=== PATIENT | female | born 1960 | race Caucasian/White ===

== ENCOUNTER 2021-02-05 14:56 | Inpatient (IN) | payer OTHER, BC ==
[~2021-02-05] VITALS: Ht 170.2 cm; Wt 127.0 kg
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
[2021-02-05] MEDS ORDERED: oxyCODONE IR 5 MG TABLET PO ONE (20:00)
[2021-02-05] MEDS ORDERED: ACETAMINOPHEN 500 MG TABLET PO ONE (20:00)
[2021-02-05] MEDS ORDERED: MORPHINE SULFATE 4 MG/ML INJ. IVP ONE (20:30)
--- NOTE | 2021-02-05 20:42 | RAD ---
Study: XR KNEE _3 VIEWS_LT Indication: Left knee pain. Comparison: None. Findings: Comminuted, displaced and depressed lateral tibial plateau fracture. Depression is estimated at up to 1.6 cm. The periphery of the lateral tibial plateau is displaced outward by approximately 0.8 cm. Th ere is the suggestion of fracture involvement of the more posterior aspect of the tibial eminence on the lateral view. Only apparent on the AP view is cortical irregularity at the medial aspect of the p roximal tibia and fracture propagation to this location is possible. Age-indeterminate mild deformity of the fibular head. No definitive fracture of the distal femur. Intact and normally located patella . Joint effusion. Osteopenia. Tricompartmental osteoarthrosis with medial compartment joint space kianna rowing. Impression: Comminuted, depressed and displaced lateral tibial plateau fracture, as above. It is possible that th ere is fracture extension horizontally along the proximal tibia through the medial cortex (see costa im age) but difficult to confirm due to osteopenia. There is also an age-indeterminate mild deformity of the fibular head. Electronically signed by: RONALD HALL MD (02/05/2021 8:40 PM) [facility]
[2021-02-05] MEDS ORDERED: ONDANSETRON PF 4 MG/2 ML VIAL. IVP PRN (20:45)
[2021-02-05] MEDS ORDERED: HYDROcodone/APAP 5/325MG 1 TAB TABLET PO PRN (22:15)
[2021-02-05] MEDS ORDERED: ACETAMINOPHEN 325 MG TABLET. PO PRN (22:15)
[2021-02-05] MEDS: HYDROcodone/APAP 5/325MG 1 TAB TABLET PO PRN (22:17)
[2021-02-06] VITALS (7 sets, daily range): BP systolic 120–190; BP diastolic 59–89
[2021-02-06] MEDS: MORPHINE SULFATE 4 MG/ML INJ. IVP PRN ×4 (01:03→15:14)
[2021-02-06] MEDS ORDERED: LANS30CA PO (02:08)
[2021-02-06] MEDS ORDERED: [UNRECOGNIZED DRUG - OTHER] PO (02:09)
[2021-02-06] MEDS ORDERED: VITA25006 PO (02:10)
[2021-02-06] MEDS: HYDROcodone/APAP 5/325MG 1 TAB TABLET PO PRN ×4 (02:43→21:10)
--- NOTE | 2021-02-06 05:25 | NUR ---
The patient, LADONNA DEXTER, 60 y/o, F admitted by MAEGAN HERNANDEZ MD, was given written information regarding hospital policies, unit procedures and contact persons. Patient oriented to room, call light, bed and POC. Call light in reach, Patient instructed on use and verbalized understanding. Valuables were checked and Patient's taking valuables/purse with him when he leaves.
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
[2021-02-06 07:19] LABS: BASO % 0 % (0-3); EOS # 0.1 x10^3/uL (0.0-0.7); EOS % 1 % (0-3); HEMOGLOBIN 9.4 g/dL (12.0-15.5); LYMPH # 1.4 x10^3/uL (1.0-4.8); LYMPH % 13 % (24-48); MEAN CORPUSCULAR HEMOGLOBIN 22 pg (25-35); MEAN CORPUSCULAR HGB CONC 31 g/dL (31-37); MEAN CORPUSCULAR VOLUME 70 fL (79-100); MONO % 9 % (0-9); NEUT # 8.6 x10^3/uL (1.8-7.7); NEUT % 77 % (31-73); PLATELET COUNT 327 x10^3/uL (140-400); RED CELL DISTRIBUTION WIDTH 18.9 % (11.5-14.5); WHITE BLOOD COUNT 11.1 x10^3/uL (4.0-11.0)
[2021-02-06 07:42] LABS: ALBUMIN 3.6 g/dL (3.4-5.0); ALBUMIN/GLOBULIN RATIO 0.9 (1.0-1.7); CALCIUM 8.5 mg/dL (8.5-10.1); CREATININE 0.9 mg/dL (0.6-1.0); GFR 64.3; POTASSIUM 4.5 mmol/L (3.5-5.1); TOTAL BILIRUBIN 0.5 mg/dL (0.2-1.0); TOTAL PROTEIN 7.7 g/dL (6.4-8.2)
[2021-02-06 08:43] LABS: PLT ESTIMATE ADEQUATE (ADEQUATE)
[2021-02-06 08:44] LABS: ANISOCYTOSIS MOD; MICROCYTOSIS SLIGHT
--- NOTE | 2021-02-06 10:04 | NUR ---
SW following. Discussed with RN, pt from home, 2L (does not use oxygen at home), NPO, Rapid COVID-19 negative. Ortho following - pt having surgery today. SW will continue to follow.
[2021-02-06] MEDS ORDERED: DEXTROSE 50% 25 GM / 50ML DISP.SYRIN. IV PRN (10:45)
--- NOTE | 2021-02-06 10:54 | EKG ---
[facility] [address] [place] [address] Test Date: 2021-02-06 Test Time: 10:51:46 Pat Name: LADONNA DEXTER Department: Room: 410 Gender: F [employer] Worker: NIKHIL : 1960 Requested By: MAEGAN HERNANDEZ Order Number: [id number] Reading MD: Damon Barrientos MD Measurements Intervals [place] Rate: 93 P: 24 DE: 170 QRS: 1 QRSD: 84 T: 56 QT: 338 QTc: 423 Interpretive Statements SINUS RHYTHM VENTRICULAR PREMATURE COMPLEX(ES) Electronically Signed On 02-08-2021 14:00:25 [employer]UE ASS[employer]IATE by Damon Barrientos MD
[2021-02-06] MEDS: INSULIN LISPRO 300 UNITS/3 ML VIAL. SQ SCH ×2 (11:21→17:00)
[2021-02-06] MEDS ORDERED: PROCHLORPERAZINE 10 MG/2 ML VIAL. IVP PRN (12:15)
[2021-02-06] MEDS ORDERED: HYDROmorphone 2 MG/ML VIAL IVP PRN (12:15)
[2021-02-06] MEDS ORDERED: fentaNYL PF VIAL 100 MCG/2 ML VIAL IVP PRN ×2 (12:15→18:15)
[2021-02-06] MEDS ORDERED: IV RINGERS,LACTATED 1000ML 1,000 ML IV SCH (12:15)
[2021-02-06] MEDS ORDERED: LIDOCAINE 2% PF 5 ML VIAL. ONE (14:20)
[2021-02-06] MEDS ORDERED: SUCCINYLCHOLINE 200 MG/10 ML VIAL. ONE (14:20)
[2021-02-06] MEDS ORDERED: PROPOFOL 10 MG/ML (20ML) VIAL. IV ONE (14:20)
[2021-02-06] MEDS ORDERED: ROCURONIUM 50 MG/5 ML VIAL. ONE (14:22)
[2021-02-06] MEDS ORDERED: GLYCOPYRROLATE 1 MG/5 ML VIAL. ONE (15:14)
[2021-02-06] MEDS ORDERED: fentaNYL PF VIAL 100 MCG/2 ML VIAL ONE (15:14)
[2021-02-06] MEDS ORDERED: ePHEDrine PF IN SALINE 50 MG/10 ML SYRINGE. IV ONE (15:15)
[2021-02-06] MEDS ORDERED: NEOSTIGMINE METHYLSULFATE 5 MG/5 ML SYRINGE. ONE (15:15)
[2021-02-06] MEDS ORDERED: PHENYLEPHRINE in 0.9% NACL PF 1 MG/10 ML SYRINGE. IV ONE (15:15)
--- NOTE | 2021-02-06 16:05 | NUR ---
Pt to surgery by bed.
[2021-02-06] MEDS ORDERED: MIDAZOLAM HCL/PF 2 MG/2 ML VIAL. ONE (16:24)
[2021-02-06] MEDS: INSULIN LISPRO 100 UNIT/ML 3ML VIAL for OP,RR ONLY. SQ PRN ×2 (16:25→18:25)
[2021-02-06] MEDS ORDERED: FAMOTIDINE 20 MG/2 ML VIAL ONE (17:00)
[2021-02-06] MEDS ORDERED: METOCLOPRAMIDE HCL 10 MG/2 ML VIAL. ONE (17:01)
[2021-02-06] MEDS ORDERED: SEVOFLURANE 61 TO 120 MINUTES. IH ONE (17:47)
--- NOTE | 2021-02-06 18:00 | PDOC2 ---
CONSULT Date of Consult Date of Consult DATE: 02/06/21 TIME: 17:56 Reason for Consult Reason for Consult: Displaced lateral tibial plateau fracture. Identification/Chief Complaint Chief Complaint Displaced lateral tibial plateau fracture. Source Source: Patient History of Present Illness Reason for Visit: Sigrid is a 60-year-old female, admitted with left knee pain after fall. She was running after a shopping cart when she tripped and fell onto the pavement. She had immediate pain and inability to bear weight. She was seen in the emergency department and radiographs revealed a displaced split/depressed lateral tibial plateau fracture. Mechanical axis was in valgus. She admits to acute left leg pain. Denies any numbness or tingling. Past Medical History Cardiovascular: No pertinent hx Past Surgical History Past Surgical History: Hysterectomy (1994) Social History No ALCOHOL: occassional Drugs: None Current Problem List Problem List Problems Medical Problems: (1) Tibial plateau fracture, left Status: Acute Current Medications Current Medications Current Medications Acetaminophen (Tylenol) 1,000 mg 1X ONCE PO Last administered on 02/05/21at 20:01; Start 02/05/21 at 20:00; Stop 02/05/21 at 20:01; Status DC Oxycodone HCl (Roxicodone) 5 mg 1X ONCE PO Last administered on 02/05/21at 20:02; Start 02/05/21 at 20:00; Stop 02/05/21 at 20:01; Status DC Morphine Sulfate (Morphine Sulfate) 4 mg 1X ONCE IVP Last administered on 02/05/21at 20:58; Start 02/05/21 at 20:30; Stop 02/05/21 at 20:31; Status DC Ondansetron HCl (Zofran) 4 mg PRN Q8HRS PRN IVP NAUSEA/VOMITING Last administered on 02/05/21at 20:57; Start 02/05/21 at 20:45; Stop 02/06/21 at 20:44 Morphine Sulfate (Morphine Sulfate) 4 mg PRN Q4HRS PRN IVP PAIN Last administered on 02/06/21at 15:14; Start 02/05/21 at 20:45; Stop 02/06/21 at 20:44 Acetaminophen (Tylenol) 650 mg PRN Q6HRS PRN PO MILD PAIN / TEMP > 100.3'F; Start 02/05/21 at 22:15 Acetaminophen/ Hydrocodone Bitart (Lortab 5/325) 1 tab PRN Q4HRS PRN PO PAIN MODERATE; Start 02/05/21 at 22:15 Acetaminophen/ Hydrocodone Bitart (Lortab 5/325) 2 tab PRN Q4HRS PRN PO SEVERE PAIN Last administered on 02/06/21at 14:27; Start 02/05/21 at 22:15 Cefazolin Sodium/ Dextrose 50 ml @ 100 mls/hr 1X PREOP PRN IV PRIOR TO PROCEDURE; Start 02/06/21 at 06:40; Stop 02/07/21 at 06:39 Insulin Human Lispro (HumaLOG) 0-5 UNITS TIDWMEALS SQ ; Start 02/06/21 at 12:00 Dextrose (Dextrose 50%-Water Syringe) 12.5 gm PRN Q15MIN PRN IV SEE COMMENTS; Start 02/06/21 at 10:45 Fentanyl Citrate (Fentanyl 2ml Vial) 25 mcg PRN Q5MIN PRN IVP MILD PAIN 1-3; Start 02/06/21 at 12:15; Stop 02/07/21 at 12:14 Fentanyl Citrate (Fentanyl 2ml Vial) 50 mcg PRN Q5MIN PRN IVP MODERATE PAIN 4- 6; Start 02/06/21 at 12:15; Stop 02/07/21 at 12:14 Morphine Sulfate (Morphine Sulfate) 1 mg PRN Q10MIN PRN IVP SEVERE PAIN 7-10; Start 02/06/21 at 12:15; Stop 02/07/21 at 12:14 Ringer's Solution 1,000 ml @ 30 mls/hr Q24H IV Last administered on 02/06/21at 16:24; Start 02/06/21 at 12:15; Stop 02/07/21 at 00:14 Hydromorphone HCl (Dilaudid) 0.5 mg PRN Q10MIN PRN IVP SEVERE PAIN 7-10, 2nd CHOICE; Start 02/06/21 at 12:15; Stop 02/07/21 at 12:14 Prochlorperazine Edisylate (Compazine) 5 mg PACU PRN PRN IVP NAUSEA, MRX1; Start 02/06/21 at 12:15; Stop 02/07/21 at 12:14 Propofol (Diprivan) 200 mg STK-MED ONCE IV ; Start 02/06/21 at 14:20; Stop 02/06/21 at 14:20; Status DC Lidocaine HCl (Lidocaine Pf 2% Vial) 5 ml STK-MED ONCE .ROUTE ; Start 02/06/21 at 14:20; Stop 02/06/21 at 14:20; Status DC Succinylcholine Chloride (Anectine) 200 mg STK-MED ONCE .ROUTE ; Start 02/06/21 at 14:20; Stop 02/06/21 at 14:20; Status DC Rocuronium [place] (Zemuron) 50 mg STK-MED ONCE .ROUTE ; Start 02/06/21 at 14: 22; Stop 02/06/21 at 14:23; Status DC Fentanyl Citrate (Fentanyl 2ml Vial) 100 mcg STK-MED ONCE .ROUTE ; Start 02/06/21 at 15:14; Stop 02/06/21 at 15:14; Status DC Glycopyrrolate (Robinul) 1 mg STK-MED ONCE .ROUTE ; Start 02/06/21 at 15:14; Stop 02/06/21 at 15:15; Status DC Ephedrine Sulfate (ePHEDrine PF IN SALINE SYRINGE) 50 mg STK-MED ONCE IV ; Start 02/06/21 at 15:15; Stop 02/06/21 at 15:15; Status DC Phenylephrine HCl (PHENYLEPHRINE in 0.9% NACL PF) 1 mg STK-MED ONCE IV ; Start 02/06/21 at 15:15; Stop 02/06/21 at 15:15; Status DC Neostigmine [place] (Neostigmine Methylsulfate) 5 mg STK-MED ONCE .ROUTE ; Start 02/06/21 at 15:15; Stop 02/06/21 at 15:15; Status DC Insulin Human Lispro (HumaLOG VIAL for OP,RR ONLY) 0-10 units PRN Q1HR PRN SQ PER PROTOCOL Last administered on 02/06/21at 16:25; Start 02/06/21 at 16:15; Stop 02/07/21 at 16:14 Midazolam HCl (Versed) 2 mg STK-MED ONCE .ROUTE ; Start 02/06/21 at 16:24; Stop 02/06/21 at 16:24; Status DC Famotidine (Pepcid Vial) 20 mg STK-MED ONCE .ROUTE ; Start 02/06/21 at 17:00; Stop 02/06/21 at 17:01; Status DC Metoclopramide HCl (Reglan Vial) 10 mg STK-MED ONCE .ROUTE ; Start 02/06/21 at 17:01; Stop 02/06/21 at 17:01; Status DC Sevoflurane (Ultane) 60 ml STK-MED ONCE IH ; Start 02/06/21 at 17:47; Stop 02/06/21 at 17:48; Status DC Active Scripts Active Reported Noxifol-D3 2,500 Unit-1 mg Tab (Vitamin D3/Folic Acid) 2,500 Unit Tablet 1 Tab PO DAILY 30 Days [truvy] PO Lansoprazole 30 Mg Capsule. 1 Cap PO DAILY Allergies Allergies: Coded Allergies: No Known Drug Allergies (Unverified , 02/05/21) ROS Musculoskeletal: Yes Joint Pain, Yes Joint Stiffness, Yes Joint Swelling, Yes Muscle Pain Physical Exam General: Alert, Oriented X3 MUSCULOSKELETAL: Abnormal exam of left (Examination of the left lower extremity reveals small skin abrasion over the anterior knee. Significant ecchymosis and swelling of the lower leg. Compartment is firm. Distal neurovascular examination is intact. Passive range of motion of the ankle and toes did not cause significant pain.) Vitals VITALS Vital Signs Date Time Temp Pulse Resp B/P (MAP) Pulse Ox O2 Delivery O2 Flow Rate FiO2 02/06/21 16:10 97.5 110 16 175/81 97 Nasal Cannula 2.0 97.5 Labs Labs Laboratory Tests Test 02/05/21 23:22 02/06/21 06:05 02/06/21 06:50 02/06/21 11:12 SARS-CoV-2 RNA (LUIS A) Negative (Negative) SARS-CoV-2 Antigen (Rapid) Negative (NEGATIVE) White Blood Count 11.1 x10^3/uL (4.0-11.0) Red Blood Count 4.30 x10^6/uL (3.50-5.40) Hemoglobin 9.4 g/dL (12.0-15.5) Hematocrit 30.0 % (36.0-47.0) Mean Corpuscular Volume 70 fL (79-100) Mean Corpuscular Hemoglobin 22 pg (25-35) Mean Corpuscular Hemoglobin Concent 31 g/dL (31-37) Red Cell Distribution Width 18.9 % (11.5-14.5) Platelet Count 327 x10^3/uL (140-400) Neutrophils (%) (Auto) 77 % (31-73) Lymphocytes (%) (Auto) 13 % (24-48) Monocytes (%) (Auto) 9 % (0-9) Eosinophils (%) (Auto) 1 % (0-3) Basophils (%) (Auto) 0 % (0-3) Neutrophils # (Auto) 8.6 x10^3/uL (1.8-7.7) Lymphocytes # (Auto) 1.4 x10^3/uL (1.0-4.8) Monocytes # (Auto) 1.0 x10^3/uL (0.0-1.1) Eosinophils # (Auto) 0.1 x10^3/uL (0.0-0.7) Basophils # (Auto) 0.0 x10^3/uL (0.0-0.2) Platelet Estimate Adequate (ADEQUATE) Anisocytosis Mod Microcytosis Slight Sodium Level 136 mmol/L (136-145) Potassium Level 4.5 mmol/L (3.5-5.1) Chloride Level 102 mmol/L (98-107) Carbon Dioxide Level 29 mmol/L (21-32) Anion Gap 5 (6-14) Blood Urea Nitrogen 17 mg/dL (7-20) Creatinine 0.9 mg/dL (0.6-1.0) Estimated GFR (Cockcroft-Gault) 64.3 BUN/Creatinine Ratio 19 (6-20) Glucose Level 157 mg/dL (70-99) Calcium Level 8.5 mg/dL (8.5-10.1) Total Bilirubin 0.5 mg/dL (0.2-1.0) Aspartate Amino Transf (AST/SGOT) 23 U/L (15-37) Alanine Aminotransferase (ALT/SGPT) 26 U/L (14-59) Alkaline Phosphatase 101 U/L (46-116) Total Protein 7.7 g/dL (6.4-8.2) Albumin 3.6 g/dL (3.4-5.0) Albumin/Globulin Ratio 0.9 (1.0-1.7) Iron Level 34 ug/dL (50-170) Total Iron Binding Capacity 417 ug/dL (250-450) Iron Saturation 8 % (15-34) Vitamin B12 Level 565 pg/mL (247-911) 25-Hydroxy Vitamin D Total 27.9 ng/mL (30-100) Glucose (Fingerstick) 136 mg/dL (70-99) Test 02/06/21 16:14 Glucose (Fingerstick) 158 mg/dL (70-99) Laboratory Tests Test 02/05/21 23:22 02/06/21 06:05 02/06/21 06:50 02/06/21 11:12 SARS-CoV-2 RNA (LUIS A) Negative (Negative) SARS-CoV-2 Antigen (Rapid) Negative (NEGATIVE) White Blood Count 11.1 x10^3/uL (4.0-11.0) Red Blood Count 4.30 x10^6/uL (3.50-5.40) Hemoglobin 9.4 g/dL (12.0-15.5) Hematocrit 30.0 % (36.0-47.0) Mean Corpuscular Volume 70 fL (79-100) Mean Corpuscular Hemoglobin 22 pg (25-35) Mean Corpuscular Hemoglobin Concent 31 g/dL (31-37) Red Cell Distribution Width 18.9 % (11.5-14.5) Platelet Count 327 x10^3/uL (140-400) Neutrophils (%) (Auto) 77 % (31-73) Lymphocytes (%) (Auto) 13 % (24-48) Monocytes (%) (Auto) 9 % (0-9) Eosinophils (%) (Auto) 1 % (0-3) Basophils (%) (Auto) 0 % (0-3) Neutrophils # (Auto) 8.6 x10^3/uL (1.8-7.7) Lymphocytes # (Auto) 1.4 x10^3/uL (1.0-4.8) Monocytes # (Auto) 1.0 x10^3/uL (0.0-1.1) Eosinophils # (Auto) 0.1 x10^3/uL (0.0-0.7) Basophils # (Auto) 0.0 x10^3/uL (0.0-0.2) Platelet Estimate Adequate (ADEQUATE) Anisocytosis Mod Microcytosis Slight Sodium Level 136 mmol/L (136-145) Potassium Level 4.5 mmol/L (3.5-5.1) Chloride Level 102 mmol/L (98-107) Carbon Dioxide Level 29 mmol/L (21-32) Anion Gap 5 (6-14) Blood Urea Nitrogen 17 mg/dL (7-20) Creatinine 0.9 mg/dL (0.6-1.0) Estimated GFR (Cockcroft-Gault) 64.3 BUN/Creatinine Ratio 19 (6-20) Glucose Level 157 mg/dL (70-99) Calcium Level 8.5 mg/dL (8.5-10.1) Total Bilirubin 0.5 mg/dL (0.2-1.0) Aspartate Amino Transf (AST/SGOT) 23 U/L (15-37) Alanine Aminotransferase (ALT/SGPT) 26 U/L (14-59) Alkaline Phosphatase 101 U/L (46-116) Total Protein 7.7 g/dL (6.4-8.2) Albumin 3.6 g/dL (3.4-5.0) Albumin/Globulin Ratio 0.9 (1.0-1.7) Iron Level 34 ug/dL (50-170) Total Iron Binding Capacity 417 ug/dL (250-450) Iron Saturation 8 % (15-34) Vitamin B12 Level 565 pg/mL (247-911) 25-Hydroxy Vitamin D Total 27.9 ng/mL (30-100) Glucose (Fingerstick) 136 mg/dL (70-99) Test 02/06/21 16:14 Glucose (Fingerstick) 158 mg/dL (70-99) Images Images Radiographs revealed a split depressed lateral tibial plateau fracture and valgus malalignment. Assessment/Plan Assessment/Plan 60-year-old female with left split/depressed lateral tibial plateau fracture after ground-level fall. Unacceptable alignment. -Radiographs and diagnosis were discussed with patient and her Dread. -We discussed both conservative and surgical treatment options. I would recommend she proceed with surgery given her fracture pattern and valgus malalignment of her limb. We discussed the risk, benefits, and alternatives to surgery. These risks include but not limited to pain, scar, infection, bleeding, damage to neurovascular structures, arthrofibrosis, thromboembolism, compartment syndrome, malunion, nonunion, and ongoing symptoms. She demonstrated understanding and wished to proceed. -Surgical consent was obtained. Patient scheduled for surgery today. -NPO. Antibiotics on-call the OR. -We will plan for left leg lateral tibial plateau fracture open reduction internal fixation with bone graft. SIMEON COSME DO Feb 06, 2021 18:00
--- NOTE | 2021-02-06 18:05 | PDOC4 ---
Operative Note Operative Note Date of surgery: 02/06/2021 Preoperative diagnosis: Left knee lateral tibial plateau split/depressed fracture. Postoperative diagnosis: Same. Operative procedure: Left lateral tibial plateau fracture open reduction internal fixation with bone allograft. Surgeon: Rhett Cosme DO/KASIA Assistants: None. Anesthesia: General Antibiotics: Ancef Orthopedic implants: -Synthes variable angle lateral tibial plateau plate. Operative indications: Sigrid is a 60-year-old female admitted to the hospital after ground-level fall. Radiographs revealed an unstable lateral tibial plateau fracture with valgus malalignment. We discussed the indications, risk, benefits, and alternatives to surgery. She demonstrated understanding and wished proceed with recommended surgery. Operative technique: The patient was met in the preoperative holding area and again the risk, benefits, and alternatives to surgery were reviewed with the patient. She again demonstrated understanding and wished to proceed with surgery. The operative extremity was then initialed after verifying correct young gical site with patient. Patient was then taken back to the operative suite. She was administered a general anesthetic by the department of anesthesiology. During induction, patient vomited brown fluid with unknown aspiration status. Anesthesia department suction the fluid and was able to intubate the patient without significant difficulties. Patient was stable throughout the case. She was given 2 g of Ancef preoperatively. A timeout protocol was performed to verify correct surgical site and procedure. All teams were in agreement. The left lower extremity was then sterilely prepped and draped in the usual fashion. Surgery began by marking our planned surgical incision overlying the lateral leg. The curvilinear incision was made with a 10 blade scalpel. Bovie electrocautery was used to control hemostasis. The anterior compartment was then entered and elevated off the proximal lateral tibia. The IT band was split proximally. The IT band was elevated off the joint capsule. The fracture site was then identified. There was a large lateral fracture fragment which was open booked. 2 large articular fragments were noted. The fracture site was thoroughly irrigated and provisional fracture hematoma. The large articular fragments were tamped back to the joint surface utilizing a Watt elevator. Cancellous bone chips were then packed into the void to following reduction of the articular fragments. The lateral fracture piece was then closed. A lateral tibial plateau plate was selected and placed on the lateral aspect of the proximal tibia. Its position was checked under C-arm fluoroscopy. Fluoroscopic images revealed adequate fracture reduction and plate placement. A large periarticular clamp was then placed with a accessory percutaneous medial incis ion. Next, the plate was fixated to the tibial shaft utilizing a 3.5 mm cortical screw. Multiple variable angle locking screws were placed rafting the subchondral bony surface for support. This secured fracture fixation. The plate was then fixated to the distal aspect utilizing additional cortical screws. Final fluoroscopic images in the AP and lateral planes were taken and saved for later review. The wounds were thoroughly irrigated with normal saline. The IT band and deep into compartment tissues were closed utilizing #1 Vicryl in [id number] fashion. Skin was then closed with 2-0 Vicryl and jordi. Sterile dressings were then applied and the patient was awakened from general anesthesia. He was then transferred to the postoperative gurney in stable condition. Estimated blood loss: 100 mL. Complications: None. Specimens sent to pathology: None. Disposition: PACU and post surgical floor. Condition: Stable. RHETT COSME DO Feb 06, 2021 18:05
[2021-02-06] MEDS: fentaNYL PF VIAL 100 MCG/2 ML VIAL IVP PRN ×2 (18:10→18:21)
[2021-02-06] MEDS: MORPHINE SULFATE 2 MG/ML INJ. IVP PRN ×3 (18:10→18:58)
[2021-02-06] MEDS ORDERED: MORPHINE SULFATE 2 MG/ML INJ. IVP PRN (18:15)
[2021-02-06] MEDS ORDERED: 0.9 % SODIUM CHLORIDE 10 ML DISP.SYRIN. IV PRN (18:15)
[2021-02-06] MEDS ORDERED: diphenhydrAMINE 50 MG/ML VIAL IVP PRN (18:15)
[2021-02-06 18:34] LABS: BASE EXCESS ABG -4 mmol/L (-3-3); HCO3 ABG 24 mmol/L (21-28); PCO2 ABG 58 mmHg (35-46); PO2 ABG 109 mmHg (75-108); SAT O2 ABG 97 % (92-99)
[2021-02-06] MEDS ORDERED: IPRATRPIUM/ALBUTEROL 0.5/2.5MG 3 ML NEBU. NEB PRN (19:45)
[2021-02-06] MEDS ORDERED: IPRATRPIUM/ALBUTEROL 0.5/2.5MG 3 ML NEBU. NEB SCH (20:00)
--- NOTE | 2021-02-06 20:16 | PDOC ---
Provider Note Date of Service: DATE: 02/06/21 TIME: 20:13 Provider Note Anesthesia note 02/06/2021 Patient vomited on induction of anesthesia. Airway was quickly secured with rapid sequence induction and intubation with 7.0 ETT and Glidescope. VS remained relatively normal during case. ETT was suctioned without vomit noted. At end of case, patient did cough up dark thick fluid via ETT. This was suctioned via ETT. VS stabilized and patient was extubated. Patient went to PACU where CXR and ABGs were done. CXR appeared normal. ABGs showed hypercarbia and acidosis. O2 was ti trated to maximal results by staff. Obvious sleep apnea and hypoventilation noted. She was transferred to monitored bed with orders for RT to titrate O2 to keep O2 sat > or equal to 92%. Other orders include scheduled Duonebs treatments, incentive spirometry, and pulmonary consult. Case discussed in detail with . Questions were answered to his satisfaction. Cory Marion MD Justifications for Admission Other Justification CORY MARION MD Feb 06, 2021 20:16
--- NOTE | 2021-02-06 20:38 | RAD ---
Exam: Left knee 2 views INDICATION: Post surgery TECHNIQUE: Frontal and lateral views left knee Comparisons: None FINDINGS: Fixation along the lateral aspect of the proximal tibia with numerous fixation screws. Surgical clips seen overlying the lateral aspect knee. Small amount of soft tissue air. Bone mineralization is norm al IMPRESSION: Postoperative changes described above. Electronically signed by: Iwona Joshi MD (02/06/2021 8:36 PM) LYLY
--- NOTE | 2021-02-06 20:39 | RAD ---
Exam: Chest one view INDICATION: Post surgery TECHNIQUE: Frontal view of the Comparisons: None FINDINGS: Heart is mildly enlarged. Pulmonary vessels are within normal limits. The lung and pleural spaces are clear. IMPRESSION: No acute pulmonary process. Electronically signed by: Iwona Joshi MD (02/06/2021 8:36 PM) LYLY
[2021-02-06] MEDS: ceFAZolin SODIUM 3 GM in IV DEXTROSE 5% 100ML 100 ML IV SCH (21:04)
[2021-02-06] MEDS: ONDANSETRON PF 4 MG/2 ML VIAL. IVP SCH (23:50)
[2021-02-07] MEDS: HYDROcodone/APAP 5/325MG 1 TAB TABLET PO PRN ×2 (01:20→10:25)
[2021-02-07] MEDS: ceFAZolin SODIUM 3 GM in IV DEXTROSE 5% 100ML 100 ML IV SCH ×2 (01:21→08:47)
[2021-02-07 02:42] VITALS: BP 183/72
[2021-02-07 04:20] LABS: PROTHROMBIN TIME PATIENT 13.7 SEC (11.7-14.0)
[2021-02-07] MEDS: ONDANSETRON PF 4 MG/2 ML VIAL. IVP SCH ×3 (05:52→17:12)
[2021-02-07 07:00] VITALS: BP 174/76
[2021-02-07] MEDS: IPRATRPIUM/ALBUTEROL 0.5/2.5MG 3 ML NEBU. NEB SCH ×4 (07:40→20:41)
[2021-02-07] MEDS: INSULIN LISPRO 300 UNITS/3 ML VIAL. SQ SCH ×3 (08:00→16:46)
--- NOTE | 2021-02-07 08:27 | PDOC ---
[employer] PROGRESS NOTE Date of Service DOS: DATE: 02/07/21 TIME: 08:24 Chief Complaint Chief Complaint Left tibial plateau fracture - POD #1, Left lateral tibial plateau fracture open reduction internal fixation with bone allograft. Fall - no gait instability Morbid obesity - BMI 43 Anemia - w Osteopenia - o Leukocytosis - Hyperglycemia History of Present Illness History of Present Illness vomited during intubation procedure, breathing OK today Vitals/I&O Vitals/I&O: Vital Signs Date Time Temp Pulse Resp B/P (MAP) Pulse Ox O2 Delivery O2 Flow Rate FiO2 02/07/21 07:40 98 Nasal Cannula 4.0 02/07/21 02:42 97.5 105 19 183/72 (109) 97.5 I & O 02/06/21 02/06/21 02/07/21 15:00 23:00 07:00 Intake Total 0 ml 600 ml 50 ml Output Total 20 ml Balance 0 ml 580 ml 50 ml Physical Exam General: Alert, Oriented X3 Abdomen: Normal bowel sounds, Soft, No tenderness, No hepatosplenomegaly, No masses Extremities: Other (Left knee tender, swollen inferiorly) Skin: No rashes, No breakdown, No significant lesion Labs Labs: Laboratory Tests Test 02/06/21 11:12 02/06/21 16:14 02/06/21 18:15 02/06/21 18:21 Glucose (Fingerstick) 136 mg/dL (70-99) 158 mg/dL (70-99) 155 mg/dL (70-99) O2 Saturation 97 % (92-99) Arterial Blood pH 7.24 (7.35-7.45) Arterial Blood pCO2 at Patient Temp 58 mmHg (35-46) Arterial Blood pO2 at Patient Temp 109 mmHg (75-108) Arterial Blood HCO3 24 mmol/L (21-28) Arterial Blood Base Excess -4 mmol/L (-3-3) FiO2 6 lpm simple mask Test 02/07/21 03:45 Prothrombin Time 13.7 SEC (11.7-14.0) Prothromb Time International Ratio 1.1 (0.8-1.1) Assessment and Plan Assessmemt and Plan Left knee lateral tibial plateau split/depressed fracture. Problems Medical Problems: (1) Tibial plateau fracture, left Status: Acute Comment Review of Relevant I have reviewed the following items raghav (where applicable) has been applied. Medications: Current Medications Medications (Trade) Dose Ordered Sig/Anna Route PRN Reason Start Time Stop Time Status Last Admin Dose Admin Fentanyl Citrate (Fentanyl 2ml Vial) 50 mcg PRN Q5MIN PRN IVP MODERATE PAIN 4-6 02/06/21 12:15 02/07/21 12:14 02/06/21 18:21 Morphine Sulfate (Morphine Sulfate) 1 mg PRN Q10MIN PRN IVP SEVERE PAIN 7-10 02/06/21 12:15 02/07/21 12:14 02/06/21 18:58 Ringer's Solution 1,000 ml @ 30 mls/hr Q24H IV 02/06/21 12:15 02/07/21 00:14 DC 02/06/21 16:24 Insulin Human Lispro (HumaLOG VIAL for OP,RR ONLY) 0-10 units PRN Q1HR PRN SQ PER PROTOCOL 02/06/21 16:15 02/07/21 16:14 02/06/21 18:25 Ondansetron HCl (Zofran) 4 mg Q6HRS IVP 02/07/21 00:00 02/07/21 18:01 02/07/21 05:52 Cefazolin Sodium 3 gm/Dextrose 100 ml @ 200 mls/hr Q6H IV 02/06/21 20:00 02/07/21 08:29 02/07/21 01:21 Albuterol/ Ipratropium (Duoneb) 3 ml QID NEB 02/07/21 09:00 02/07/21 07:40 Justifications for Admission Other Justification CHRISTINA MISHRA MD Feb 07, 2021 08:27
[2021-02-07] MEDS: SENNOSIDES/DOCUSATE 8.6/50MG TABLET. PO SCH (08:47)
[2021-02-07] MEDS ORDERED: ACETAMINOPHEN 500 MG TABLET PO SCH (09:00)
[2021-02-07] MEDS: ACETAMINOPHEN 500 MG TABLET PO SCH ×3 (09:30→20:19)
[2021-02-07] MEDS ORDERED: ERGOCALCIFEROL (VITAMIN D2) 50,000 UNIT CAPSULE. PO SCH (09:30)
[2021-02-07] MEDS ORDERED: IRON SUCROSE COMPLEX 200 MG in IV NORMAL SALINE 100ML 100 ML IV ONE (10:00)
[2021-02-07] MEDS ORDERED: KETOROLAC 30 MG/ML VIAL. IVP ONE (10:30)
--- NOTE | 2021-02-07 10:36 | RAD ---
Examination: Single fluoroscopic image proximal tibia HISTORY: History of left tibial plateau fracture COMPARISON: 02/05/2021 Findings/ impression: Plate and screw fixation of the tibial plateau fracture identified. Electronically signed by: Getachew Madsen MD (02/07/2021 10:34 AM) [id number]
[2021-02-07 11:00] VITALS: BP 138/61
[2021-02-07 14:45] VITALS: BP 187/64
--- NOTE | 2021-02-07 15:16 | PDOC ---
PROGRESS NOTES Date of Service DATE: 02/07/21 TIME: 15:14 Subjective Subjective Problems overnight: No acute overnight issues. Pain is controlled. Was not able to do much with therapy today. Objective Vital Signs Vital Signs Date Time Temp Pulse Resp B/P (MAP) Pulse Ox O2 Delivery O2 Flow Rate FiO2 02/07/21 14:45 98.0 99 20 187/64 (105) 96 Nasal Cannula 4.0 98.0 Physical Exam Surgical dressings are clean and dry. Mild swelling about the distal extremity. Distal neurovascular examination is intact. Active range of motion without significant discomfort. Labs Laboratory Tests Test 02/05/21 23:22 02/06/21 06:05 02/06/21 06:50 02/06/21 11:12 SARS-CoV-2 RNA (LUIS A) Negative (Negative) SARS-CoV-2 Antigen (Rapid) Negative (NEGATIVE) White Blood Count 11.1 x10^3/uL (4.0-11.0) Red Blood Count 4.30 x10^6/uL (3.50-5.40) Hemoglobin 9.4 g/dL (12.0-15.5) Hematocrit 30.0 % (36.0-47.0) Mean Corpuscular Volume 70 fL (79-100) Mean Corpuscular Hemoglobin 22 pg (25-35) Mean Corpuscular Hemoglobin Concent 31 g/dL (31-37) Red Cell Distribution Width 18.9 % (11.5-14.5) Platelet Count 327 x10^3/uL (140-400) Neutrophils (%) (Auto) 77 % (31-73) Lymphocytes (%) (Auto) 13 % (24-48) Monocytes (%) (Auto) 9 % (0-9) Eosinophils (%) (Auto) 1 % (0-3) Basophils (%) (Auto) 0 % (0-3) Neutrophils # (Auto) 8.6 x10^3/uL (1.8-7.7) Lymphocytes # (Auto) 1.4 x10^3/uL (1.0-4.8) Monocytes # (Auto) 1.0 x10^3/uL (0.0-1.1) Eosinophils # (Auto) 0.1 x10^3/uL (0.0-0.7) Basophils # (Auto) 0.0 x10^3/uL (0.0-0.2) Platelet Estimate Adequate (ADEQUATE) Anisocytosis Mod Microcytosis Slight Sodium Level 136 mmol/L (136-145) Potassium Level 4.5 mmol/L (3.5-5.1) Chloride Level 102 mmol/L (98-107) Carbon Dioxide Level 29 mmol/L (21-32) Anion Gap 5 (6-14) Blood Urea Nitrogen 17 mg/dL (7-20) Creatinine 0.9 mg/dL (0.6-1.0) Estimated GFR (Cockcroft-Gault) 64.3 BUN/Creatinine Ratio 19 (6-20) Glucose Level 157 mg/dL (70-99) Calcium Level 8.5 mg/dL (8.5-10.1) Total Bilirubin 0.5 mg/dL (0.2-1.0) Aspartate Amino Transf (AST/SGOT) 23 U/L (15-37) Alanine Aminotransferase (ALT/SGPT) 26 U/L (14-59) Alkaline Phosphatase 101 U/L (46-116) Total Protein 7.7 g/dL (6.4-8.2) Albumin 3.6 g/dL (3.4-5.0) Albumin/Globulin Ratio 0.9 (1.0-1.7) Hemoglobin A1c 6.0 % (4.8-5.6) Iron Level 34 ug/dL (50-170) Total Iron Binding Capacity 417 ug/dL (250-450) Iron Saturation 8 % (15-34) Vitamin B12 Level 565 pg/mL (247-911) 25-Hydroxy Vitamin D Total 27.9 ng/mL (30-100) Glucose (Fingerstick) 136 mg/dL (70-99) Test 02/06/21 16:14 02/06/21 18:15 02/06/21 18:21 02/07/21 03:45 Glucose (Fingerstick) 158 mg/dL (70-99) 155 mg/dL (70-99) O2 Saturation 97 % (92-99) Arterial Blood pH 7.24 (7.35-7.45) Arterial Blood pCO2 at Patient Temp 58 mmHg (35-46) Arterial Blood pO2 at Patient Temp 109 mmHg (75-108) Arterial Blood HCO3 24 mmol/L (21-28) Arterial Blood Base Excess -4 mmol/L (-3-3) FiO2 6 lpm simple mask Prothrombin Time 13.7 SEC (11.7-14.0) Prothromb Time International Ratio 1.1 (0.8-1.1) Test 02/07/21 08:56 02/07/21 11:52 Glucose (Fingerstick) 155 mg/dL (70-99) 180 mg/dL (70-99) Laboratory Tests Test 02/06/21 16:14 02/06/21 18:15 02/06/21 18:21 02/07/21 03:45 Glucose (Fingerstick) 158 mg/dL (70-99) 155 mg/dL (70-99) O2 Saturation 97 % (92-99) Arterial Blood pH 7.24 (7.35-7.45) Arterial Blood pCO2 at Patient Temp 58 mmHg (35-46) Arterial Blood pO2 at Patient Temp 109 mmHg (75-108) Arterial Blood HCO3 24 mmol/L (21-28) Arterial Blood Base Excess -4 mmol/L (-3-3) FiO2 6 lpm simple mask Prothrombin Time 13.7 SEC (11.7-14.0) Prothromb Time International Ratio 1.1 (0.8-1.1) Test 02/07/21 08:56 02/07/21 11:52 Glucose (Fingerstick) 155 mg/dL (70-99) 180 mg/dL (70-99) Imaging Postsurgical radiographs reveal fixation of the plateau fracture with near anatomic alignment. Assessment Assessment POD#1 status post left lateral tibial plateau ORIF. Plan Plan of Care -Pain control per primary team. -Continue with PT, nonweightbearing left lower extremity. -Orthopedically stable. -Patient is from [place] and will need to set up orthopedic follow-up to have her x-rays taken and her jordi removed in about 2 weeks. -DVT prophylaxis per primary team. -Social work/case management to help arrange likely need for acute rehab facility near their home in [place]. Justicifation of Admission Dx: Justifications for Admission: Justification of Admission Dx: Yes SIMEON COSME DO Feb 07, 2021 15:16
[2021-02-07] MEDS: ENOXAPARIN 40 MG/0.4 ML SYRINGE. SQ SCH ×2 (15:44→20:21)
[2021-02-07] MEDS: oxyCODONE IR 5 MG TABLET PO PRN ×2 (15:44→20:20)
[2021-02-07 19:19] VITALS: BP 153/57
[2021-02-07 23:16] VITALS: BP 169/66
[2021-02-08 02:41] VITALS: BP 137/76
[2021-02-08] MEDS: oxyCODONE IR 5 MG TABLET PO PRN ×4 (03:14→22:12)
[2021-02-08 03:57] LABS: HEMATOCRIT 23.4 % (36.0-47.0); HEMOGLOBIN 7.3 g/dL (12.0-15.5)
[2021-02-08 04:06] LABS: PROTHROMBIN TIME PATIENT 13.5 SEC (11.7-14.0)
[2021-02-08 06:30] VITALS: BP 156/67
[2021-02-08] MEDS: IPRATRPIUM/ALBUTEROL 0.5/2.5MG 3 ML NEBU. NEB SCH ×4 (07:37→20:15)
[2021-02-08] MEDS: INSULIN LISPRO 300 UNITS/3 ML VIAL. SQ SCH ×3 (07:46→17:00)
[2021-02-08] MEDS: ACETAMINOPHEN 500 MG TABLET PO SCH ×3 (08:17→22:04)
[2021-02-08] MEDS: ENOXAPARIN 40 MG/0.4 ML SYRINGE. SQ SCH ×2 (08:18→21:00)
[2021-02-08] MEDS: SENNOSIDES/DOCUSATE 8.6/50MG TABLET. PO SCH (08:18)
[2021-02-08 11:00] VITALS: BP 148/52
[2021-02-08] MEDS ORDERED: KETOROLAC 30 MG/ML VIAL. IVP ONE (11:30)
[2021-02-08 15:00] VITALS: BP 132/71
--- NOTE | 2021-02-08 15:21 | PDOC ---
[employer] PROGRESS NOTE Date of Service DOS: DATE: 02/08/21 TIME: 15:20 Chief Complaint Chief Complaint Left tibial plateau fracture - POD #2, Left lateral tibial plateau fracture open reduction internal fixation with bone allograft. Fall - no intristic gait instability Morbid obesity - BMI 43, age related weakness Anemia - Osteopenia - Leukocytosis - Hyperglycemia History of Present Illness History of Present Illness will try to DC when she can transfer pain still high, cont tylenol sched. add Toradol again ice pacs PT and OT seen Vitals/I&O Vitals/I&O: Vital Signs Date Time Temp Pulse Resp B/P (MAP) Pulse Ox O2 Delivery O2 Flow Rate FiO2 02/08/21 12:51 93 Nasal Cannula 3.0 02/08/21 11:00 98.8 101 20 148/52 (84) 98.8 I & O 02/07/21 02/07/21 02/08/21 15:00 23:00 07:00 Intake Total 210 ml Balance 210 ml Physical Exam General: Alert, Oriented X3 Abdomen: Normal bowel sounds, Soft, No tenderness, No hepatosplenomegaly, No masses Extremities: Other (Left knee tender, swollen inferiorly) Skin: No rashes, No breakdown, No significant lesion Labs Labs: Laboratory Tests Test 02/07/21 16:05 02/07/21 21:03 02/08/21 03:30 02/08/21 07:35 Glucose (Fingerstick) 134 mg/dL (70-99) 136 mg/dL (70-99) 131 mg/dL (70-99) Hemoglobin 7.3 g/dL (12.0-15.5) Hematocrit 23.4 % (36.0-47.0) Mean Corpuscular Hemoglobin Concent 31 g/dL (31-37) Prothrombin Time 13.5 SEC (11.7-14.0) Prothromb Time International Ratio 1.0 (0.8-1.1) Test 02/08/21 11:54 Glucose (Fingerstick) 119 mg/dL (70-99) Review of Systems Review of Systems: no cough, no dyspnea, pain better Assessment and Plan Assessmemt and Plan Problems Medical Problems: (1) Tibial plateau fracture, left Status: Acute Comment Review of Relevant I have reviewed the following items raghav (where applicable) has been applied. Medications: Current Medications Medications (Trade) Dose Ordered Sig/Anna Route PRN Reason Start Time Stop Time Status Last Admin Dose Admin Ketorolac Tromethamine (Toradol 30mg Vial) 30 mg 1X ONCE IVP 02/08/21 11:30 02/08/21 11:31 DC 02/08/21 12:22 Justifications for Admission Other Justification CHRISTINA MISHRA MD Feb 08, 2021 15:21
[2021-02-08 19:09] VITALS: BP 163/64
[2021-02-08 23:13] VITALS: BP 170/47
[2021-02-09] VITALS (10 sets, daily range): BP systolic 151–202; BP diastolic 56–78
[2021-02-09 04:36] LABS: PROTHROMBIN TIME PATIENT 13.1 SEC (11.7-14.0)
[2021-02-09 05:30] LABS: HEMOGLOBIN 6.6 g/dL (12.0-15.5)
[2021-02-09 05:31] LABS: HEMATOCRIT 21.3 % (36.0-47.0)
[2021-02-09] MEDS: INSULIN LISPRO 300 UNITS/3 ML VIAL. SQ SCH ×3 (08:00→16:50)
[2021-02-09] MEDS: IPRATRPIUM/ALBUTEROL 0.5/2.5MG 3 ML NEBU. NEB SCH ×4 (08:12→20:23)
[2021-02-09] MEDS: SENNOSIDES/DOCUSATE 8.6/50MG TABLET. PO SCH (08:14)
[2021-02-09] MEDS: ACETAMINOPHEN 500 MG TABLET PO SCH ×3 (08:14→20:15)
[2021-02-09] MEDS: ENOXAPARIN 40 MG/0.4 ML SYRINGE. SQ SCH ×2 (08:15→20:14)
[2021-02-09] MEDS: oxyCODONE IR 5 MG TABLET PO PRN ×2 (08:15→18:25)
--- NOTE | 2021-02-09 13:51 | PDOC ---
[employer] PROGRESS NOTE Date of Service DOS: DATE: 02/09/21 TIME: 13:50 Chief Complaint Chief Complaint Left tibial plateau fracture - POD 3, Left lateral tibial plateau fracture open reduction internal fixation with bone allograft. Fall - no intristic gait instability Morbid obesity - BMI 43, age related weakness Anemia - Osteopenia - Leukocytosis - Hyperglycemia History of Present Illness History of Present Illness 02/09/2021 Patient seen and examined Discussed with RN Discussed with case management Chart reviewed Discussed with her Dread Hemoglobin is low again today so we are going to transfuse another unit of blood Hope to discharge to alf in the morning Vitals/I&O Vitals/I&O: Vital Signs Date Time Temp Pulse Resp B/P (MAP) Pulse Ox O2 Delivery O2 Flow Rate FiO2 02/09/21 13:09 98.8 108 16 189/68 98.8 02/09/21 12:32 95 Nasal Cannula 2.0 I & O 02/08/21 02/08/21 02/09/21 15:00 23:00 07:00 Intake Total 480 ml 440 ml 0 ml Balance 480 ml 440 ml 0 ml Physical Exam General: Alert, Oriented X3 Abdomen: Normal bowel sounds, Soft, No tenderness, No hepatosplenomegaly, No masses Extremities: Other (Left knee tender, swollen inferiorly) Skin: No rashes, No breakdown, No significant lesion Labs Labs: Laboratory Tests Test 02/08/21 16:55 02/08/21 20:48 02/09/21 04:00 02/09/21 07:42 Glucose (Fingerstick) 114 mg/dL (70-99) 110 mg/dL (70-99) 150 mg/dL (70-99) Hemoglobin 6.6 g/dL (12.0-15.5) Hematocrit 21.3 % (36.0-47.0) Mean Corpuscular Hemoglobin Concent 31 g/dL (31-37) Prothrombin Time 13.1 SEC (11.7-14.0) Prothromb Time International Ratio 1.0 (0.8-1.1) Test 02/09/21 11:49 Glucose (Fingerstick) 134 mg/dL (70-99) Assessment and Plan Assessmemt and Plan Problems Medical Problems: (1) Tibial plateau fracture, left Status: Acute Left tibial plateau fracture - POD #2, Left lateral tibial plateau fracture open reduction internal fixation with bone allograft. Fall - no intristic gait instability Morbid obesity - BMI 43, age related weakness Anemia - Osteopenia - Leukocytosis - Hyperglycemia Plan Transfuse 1 unit of packed red blood cells Hope to discharge to alf in the morning For now continue supportive nursing home meds DVT prophylaxis Full code PT OT Comment Review of Relevant I have reviewed the following items raghav (where applicable) has been applied. Medications: Current Medications Medications (Trade) Dose Ordered Sig/Anna Route PRN Reason Start Time Stop Time Status Last Admin Dose Admin Lorazepam (Ativan Inj) 1 mg PRN Q6HRS PRN IVP ANXIETY / AGITATION 02/09/21 12:45 02/09/21 12:41 Justifications for Admission Other Justification WARREN VACA III DO Feb 09, 2021 13:51
--- NOTE | 2021-02-09 15:25 | NUR ---
SW following. Discussed with RN, pt from home with spouse. Pt lives in [place] but works in [place]. Pt listed as having workers comp as insurance. Pt's questioning acute rehab. SW went to see pt and pt's , however pt had just been given Ativan and was sleeping, and the had left. SW left voicemail on pt's phone (ph: [phone]).Therapy recommending acute rehab. NATALEE will continue to follow.
[2021-02-10] MEDS ORDERED: hydrALAZINE 20 MG/ML VIAL. IVP PRN (01:15)
[2021-02-10] MEDS: oxyCODONE IR 5 MG TABLET PO PRN ×4 (01:35→22:26)
[2021-02-10 03:25] VITALS: BP 165/76
[2021-02-10 04:09] LABS: HEMATOCRIT 24.5 % (36.0-47.0)
[2021-02-10 04:18] LABS: PROTHROMBIN TIME PATIENT 13.2 SEC (11.7-14.0)
[2021-02-10 07:00] VITALS: BP 128/69
[2021-02-10] MEDS: IPRATRPIUM/ALBUTEROL 0.5/2.5MG 3 ML NEBU. NEB SCH ×4 (07:19→19:56)
[2021-02-10] MEDS: INSULIN LISPRO 300 UNITS/3 ML VIAL. SQ SCH ×3 (08:00→17:00)
[2021-02-10] MEDS: ACETAMINOPHEN 500 MG TABLET PO SCH ×3 (09:21→20:12)
[2021-02-10] MEDS: SENNOSIDES/DOCUSATE 8.6/50MG TABLET. PO SCH (09:21)
[2021-02-10] MEDS: ENOXAPARIN 40 MG/0.4 ML SYRINGE. SQ SCH ×2 (09:22→20:13)
[2021-02-10] MEDS: LORazepam 0.5 MG TABLET PO PRN ×2 (10:29→18:49)
[2021-02-10 11:00] VITALS: BP 169/75
--- NOTE | 2021-02-10 12:32 | PDOC ---
[employer] PROGRESS NOTE Date of Service DOS: DATE: 02/10/21 TIME: 12:27 Chief Complaint Chief Complaint Left tibial plateau fracture - POD 3, Left lateral tibial plateau fracture open reduction internal fixation with bone allograft. Fall - no intristic gait instability Morbid obesity - BMI 43, age related weakness Anemia - Osteopenia - Leukocytosis - Hyperglycemia History of Present Illness History of Present Illness 02/10/2021 Patient seen and examined Discussed with RN Discussed with case management Chart reviewed Hemoglobin improved today. Hope to discharge to rehab facility in [place], [place]. Vitals/I&O Vitals/I&O: Vital Signs Date Time Temp Pulse Resp B/P (MAP) Pulse Ox O2 Delivery O2 Flow Rate FiO2 02/10/21 11:27 96 Room Air 02/10/21 11:00 98.1 100 20 169/75 (106) 1.0 98.1 I & O 02/09/21 02/09/21 02/10/21 15:00 23:00 07:00 Intake Total 610 ml 320 ml 300 ml Balance 610 ml 320 ml 300 ml Physical Exam General: Alert, Oriented X3 Abdomen: Normal bowel sounds, Soft, No tenderness, No hepatosplenomegaly, No masses Extremities: Other (Left knee tender, swollen inferiorly) Skin: No rashes, No breakdown, No significant lesion Labs Labs: Laboratory Tests Test 02/09/21 16:41 02/09/21 21:06 02/10/21 03:15 02/10/21 07:27 Glucose (Fingerstick) 101 mg/dL (70-99) 116 mg/dL (70-99) 117 mg/dL (70-99) Hemoglobin 8.0 g/dL (12.0-15.5) Hematocrit 24.5 % (36.0-47.0) Mean Corpuscular Hemoglobin Concent 33 g/dL (31-37) Prothrombin Time 13.2 SEC (11.7-14.0) Prothromb Time International Ratio 1.0 (0.8-1.1) Test 02/10/21 11:39 Glucose (Fingerstick) 127 mg/dL (70-99) Assessment and Plan Assessmemt and Plan Problems Medical Problems: (1) Tibial plateau fracture, left Status: Acute Left tibial plateau fracture - POD #3, Left lateral tibial plateau fracture open reduction internal fixation with bone allograft. Fall - no intristic gait instability Morbid obesity - BMI 43, age related weakness Anemia - Osteopenia - Leukocytosis - Hyperglycemia Plan: Discharge to rehab facility in [place], [place] pending bed placement. Patient prefers [facility] if possible. Requests EMS transport if possible. Coordination with case management for patient disposition. PT/OT Home meds Wound care/bandage change prior to discharge Comment Review of Relevant I have reviewed the following items raghav (where applicable) has been applied. Medications: Current Medications Medications (Trade) Dose Ordered Sig/Anna Route PRN Reason Start Time Stop Time Status Last Admin Dose Admin Lorazepam (Ativan Inj) 1 mg PRN Q6HRS PRN IVP ANXIETY / AGITATION 02/09/21 12:45 02/10/21 03:21 Hydralazine HCl (Apresoline Inj) 5 mg PRN Q6HRS PRN IVP ELEVATED BP, SEE COMMENTS 02/10/21 01:15 02/10/21 01:34 Lorazepam (Ativan) 0.5 mg PRN Q8HRS PRN PO ANXIETY / AGITATION 02/10/21 09:45 02/10/21 10:29 Justifications for Admission Other Justification WARREN VACA III DO Feb 10, 2021 12:31
--- NOTE | 2021-02-10 13:53 | NUR ---
SS following up with discharge planning. SS reviewed pt chart and discussed with pt RN. Pt is currently requiring oxygen at two liters nasal canula. COVID19 negative. PT/OT recommended acute rehabilitation. Currently awaiting ortho to follow up with pt. SS met with pt and spouse in room to discuss discharge planning and acute rehabilitation. Pt has workers comp claim pending and has [employer] [place] secondary to workers comp claim. Pt and pt's spouse requesting to go to acute rehabilitation in [place], [place]. SS phoned and faxed referrals to [facility], ; fax [phone], and [facility], ; fax [phone]. Both facilities contacted SS and reported that they need to verify with workers comp prior to proceeding. SS will continue to follow for discharge planning.
[2021-02-10 15:00] VITALS: BP 151/76
--- NOTE | 2021-02-10 15:42 | NUR ---
SPOKE WITH ORTHO DOC. [place] TO REMOVE BOX FROM [facility]. DRESSING IS TO REMAIN INTACT UNTIL PATIENT FOLLOWS UP WITH ORTHO UPON RETURN TO [place]. DRESSING REINFORCED AT THIS TIME.
--- NOTE | 2021-02-10 17:40 | NUR ---
NURSING FOR [employer] PT STATES THAT SOMEONE FROM HER WORK COMP IS GOING TO BE MAKING CONTACT WITH US TOMORROW. ISIAH FRANK, . SHE ALSO MENTIONED THE NAME MARLA.
[2021-02-10 19:10] VITALS: BP 184/82
[2021-02-10 23:00] VITALS: BP 149/67
[2021-02-11] MEDS: oxyCODONE IR 5 MG TABLET PO PRN ×5 (02:24→20:01)
[2021-02-11 03:15] VITALS: BP 186/88
[2021-02-11] MEDS: LORazepam 0.5 MG TABLET PO PRN ×3 (03:22→20:00)
[2021-02-11 07:00] VITALS: BP 178/74
--- NOTE | 2021-02-11 07:44 | PDOC ---
[employer] PROGRESS NOTE Date of Service DOS: DATE: 02/11/21 TIME: 07:41 Chief Complaint Chief Complaint Left tibial plateau fracture - POD 3, Left lateral tibial plateau fracture open reduction internal fixation with bone allograft. Fall - no intristic gait instability Morbid obesity - BMI 43, age related weakness Anemia - Osteopenia - Leukocytosis - Hyperglycemia History of Present Illness History of Present Illness 02/11/2021 Patient seen and examined, in NAD, with mild c/o pain but in good spirits. Discussed with RN Discussed with case management Probable d/c today to rehab facility in [place], [place] via ambulance today. 02/10/2021 Patient seen and examined Discussed with RN Discussed with case management Chart reviewed Hemoglobin improved today. Hope to discharge to rehab facility in [place], [place]. Vitals/I&O Vitals/I&O: Vital Signs Date Time Temp Pulse Resp B/P (MAP) Pulse Ox O2 Delivery O2 Flow Rate FiO2 02/11/21 07:20 Nasal Cannula 2.0 02/11/21 03:15 98.0 101 20 186/88 (120) 98 98.0 I & O 02/10/21 02/10/21 02/11/21 15:00 23:00 07:00 Intake Total 550 ml 360 ml 100 ml Balance 550 ml 360 ml 100 ml Physical Exam General: Alert, Oriented X3 Abdomen: Normal bowel sounds, Soft, No tenderness, No hepatosplenomegaly, No masses Extremities: Other (Left knee tender, swollen inferiorly) Skin: No rashes, No breakdown, No significant lesion Labs Labs: Laboratory Tests Test 02/10/21 11:39 02/10/21 17:10 02/10/21 20:39 02/11/21 07:31 Glucose (Fingerstick) 127 mg/dL (70-99) 160 mg/dL (70-99) 92 mg/dL (70-99) 118 mg/dL (70-99) Assessment and Plan Assessmemt and Plan Problems Medical Problems: (1) Tibial plateau fracture, left Status: Acute Plan: Discharge to rehab facility in [place], [place] pending bed placement and EMS transport able. Patient prefers [facility] if possible. Coordination with case management for patient disposition. PT/OT Home meds Wound care/bandage change prior to discharge Comment Review of Relevant I have reviewed the following items raghav (where applicable) has been applied. Medications: Current Medications Medications (Trade) Dose Ordered Sig/Anna Route PRN Reason Start Time Stop Time Status Last Admin Dose Admin Lorazepam (Ativan) 0.5 mg PRN Q8HRS PRN PO ANXIETY / AGITATION 02/10/21 09:45 02/11/21 03:22 Justifications for Admission Other Justification WARREN VACA III DO Feb 11, 2021 07:44
[2021-02-11] MEDS: IPRATRPIUM/ALBUTEROL 0.5/2.5MG 3 ML NEBU. NEB SCH ×4 (07:59→21:00)
[2021-02-11] MEDS: INSULIN LISPRO 300 UNITS/3 ML VIAL. SQ SCH ×3 (08:00→17:00)
[2021-02-11 08:05] LABS: PROTHROMBIN TIME PATIENT 13.2 SEC (11.7-14.0)
--- NOTE | 2021-02-11 08:44 | SNU/HH DC ---
DISCHARGE ORDERS DISCHARGE INFORMATION: FINAL DIAGNOSIS Problems Medical Problems: (1) Tibial plateau fracture, left Status: Acute CONDITION ON DISCHARGE: Stable CODE STATUS: Code Status: Full DETENTION: SNF STAY <30 DAYS: Yes HOSPICE: HOSPICE: No HOSPICE EVAL & TREAT: No LTAC: ADMIT TO LTAC: No POST DISCHARGE ORDERS: DIET AFTER DISCHARGE: Cardiac TREATMENT/EQUIPMENT ORDERS: Physical Therapy For: Evalulation/Treatment Occupational Therapy For: Evaluation/Treatment DISCHARGE MEDICATIONS: Home Meds Reported Medications Vitamin D3/Folic Acid (Noxifol-D3 2,500 Unit-1 mg Tab) 2,500 Unit Tablet, 1 TAB PO DAILY for supplement for 30 Days, #30 TAB 0 Refills 02/06/21 [truvy] No Conflict Check, PO for weight loss 02/06/21 Lansoprazole (LANSOPRAZOLE) 30 Mg Capsule., 1 CAP PO DAILY for reflux, #30 CAP 5 Refills 02/06/21 WARREN VACA III DO Feb 11, 2021 08:44
--- NOTE | 2021-02-11 08:55 | DS ---
DATE OF DISCHARGE: 02/11/2021 ADMITTING DIAGNOSIS: Tibial plateau fracture. DISCHARGE DIAGNOSES: Postop day 5 tibial plateau fracture ORIF, history of hysterectomy. HOSPITAL COURSE: The patient is a pleasant 60-year-old female who fell and suffered a tibial plateau fracture. She was admitted. We consulted Orthopedics. She was taken for ORIF of the tibial plateau fracture. She is on postop day 5 today. I saw and examined her. She is at her baseline. Case management has arranged for her to go to [place] via ambulance and she will be admitted to a rehab there. DISPOSITION: nursing home. ACTIVITY: As tolerated. DIET: Low sodium. DISCHARGE MEDICATIONS: Please see the MRAD. They are p.r.n. Lortab. I left a prescription for 15 tablets one q. 6 hours p.r.n. and she can take that with her to get it filled in [place], Protonix 30 a day, vitamin D. TOTAL TIME: 32 minutes. IRWIN/JOSELITO DR: Hernando TID: [id number]
[2021-02-11] MEDS: SENNOSIDES/DOCUSATE 8.6/50MG TABLET. PO SCH (09:24)
[2021-02-11] MEDS: ACETAMINOPHEN 500 MG TABLET PO SCH ×3 (09:24→20:28)
[2021-02-11] MEDS: ENOXAPARIN 40 MG/0.4 ML SYRINGE. SQ SCH ×2 (09:24→20:27)
[2021-02-11 11:00] VITALS: BP 121/55
--- NOTE | 2021-02-11 12:21 | NUR ---
SS following up with discharge planning. SS reviewed pt chart and discussed with pt RN. Pt is currently requiring oxygen at two liters nasal canula. COVID19 negative. PT/OT recommended acute rehabilitation. Pt is workers darrion. Pt accepted at [facility]], ; fax [phone], and [facility], ; fax [phone], pending [employer] approval. SS received phone contact from Pilar Smitha, ; fax [phone], from [employer] at 0800 this morning stating that she is still needing clinical documentation from hospital to process claim and assess for acute rehabilitation. SS phoned and faxed clinical as requested this morning. Pilar came to hospital and met with pt and confirmed receipt of paperwork. [facility] currently working to obtain authorizations for hospital stay and acute rehabilitation. [facility] reported that they have spoken with [employer] and are awaiting approval. SS will continue to follow for discharge planning. Addendum: 02/11/21 at 1603 by TRACEY RODAS SS SS received phone contact from [facility] stating that they have payment agreement with [employer] and are awaiting for Paid Search Marketing Analyst for facility to review and sign off. [facility] reported that they would follow up with SS in the morning.
[2021-02-11 15:00] VITALS: BP 178/56
--- NOTE | 2021-02-11 16:59 | NUR ---
Pt transferred to room 412. Report given to TIAN Guerra. Pt belongings were packed by . Call light within reach.
[2021-02-11 19:00] VITALS: BP 161/70
[2021-02-11 23:00] VITALS: BP 162/65
[2021-02-12] MEDS: oxyCODONE IR 5 MG TABLET PO PRN ×6 (01:22→23:41)
[2021-02-12 03:00] VITALS: BP 134/74
[2021-02-12 07:15] VITALS: BP 128/65
[2021-02-12] MEDS: ENOXAPARIN 40 MG/0.4 ML SYRINGE. SQ SCH ×2 (07:37→20:51)
[2021-02-12] MEDS: SENNOSIDES/DOCUSATE 8.6/50MG TABLET. PO SCH (07:38)
[2021-02-12] MEDS: INSULIN LISPRO 300 UNITS/3 ML VIAL. SQ SCH ×3 (07:38→17:00)
[2021-02-12] MEDS: ACETAMINOPHEN 500 MG TABLET PO SCH ×3 (07:38→20:51)
[2021-02-12] MEDS: LORazepam 0.5 MG TABLET PO PRN ×3 (07:38→23:41)
[2021-02-12] MEDS: IPRATRPIUM/ALBUTEROL 0.5/2.5MG 3 ML NEBU. NEB SCH ×4 (07:59→21:00)
[2021-02-12 11:03] VITALS: BP 144/58
--- NOTE | 2021-02-12 11:36 | NUR ---
SW following. Discussed with RN, medical billing and coding specialist at [facility] in [place], [place] have approved acceptance. Facility can take pt today if transport could be arranged. NATALEE spoke with [facility], they cannot do transport today but have scheduled pt for 10am tomorrow (02/13/21) after their fabric worker supervisor gives approval due to long drive. RN notified. Facility okay with admission tomorrow. SW will continue to follow.
[2021-02-12 15:20] VITALS: BP 143/44
[2021-02-12 19:00] VITALS: BP 159/68
[2021-02-12 23:00] VITALS: BP 147/53
[2021-02-13 03:00] VITALS: BP 146/59
[2021-02-13] MEDS: oxyCODONE IR 5 MG TABLET PO PRN ×2 (03:39→08:09)
[2021-02-13 07:00] VITALS: BP 178/65
[2021-02-13] MEDS: INSULIN LISPRO 300 UNITS/3 ML VIAL. SQ SCH (08:00)
[2021-02-13] MEDS: IPRATRPIUM/ALBUTEROL 0.5/2.5MG 3 ML NEBU. NEB SCH (08:05)
[2021-02-13] MEDS: ACETAMINOPHEN 500 MG TABLET PO SCH (08:09)
[2021-02-13] MEDS: SENNOSIDES/DOCUSATE 8.6/50MG TABLET. PO SCH (08:09)
[2021-02-13] MEDS: ENOXAPARIN 40 MG/0.4 ML SYRINGE. SQ SCH (08:09)
--- NOTE | 2021-02-13 09:30 | NUR ---
Attempt made to call report to [facility] in [place], Spoke with Cara, she stated someone would call me back to receive report.
--- NOTE | 2021-02-13 10:04 | NUR ---
SW following. Discussed with RN, pt discharging to [facility] in [place], [place] today at 10am via [facility]. RN notified. Discharge orders and updates faxed. No further SW needs.
--- NOTE | 2021-02-13 10:32 | NUR ---
Pt. discharged to [facility] per GHISLAINE ayala, with pt. Mare rodriguez intact.
== END 2021-02-13 10:30 | DRG 493 ==
LOC: ER 14:56 → 4 NORTH 20:44 → 6 SOUTH 02-06 20:24 → 4 NORTH 02-11 16:47
PROVIDERS: ADMIT Internal Medicine; ATTEND Internal Medicine
PROC: 0BH17EZ Insertion of Endotracheal Airway into Trachea, Via Natural or Artificial Opening (ICD-10-PCS; 2021-02-06)
PROC: 0QSH04Z Reposition Left Tibia with Internal Fixation Device, Open Approach (ICD-10-PCS; principal; 2021-02-06 16:30)
PROC: 30233N1 Transfusion of Nonautologous Red Blood Cells into Peripheral Vein, Percutaneous Approach (ICD-10-PCS; 2021-02-09)
DX: S82.142A Displaced bicondylar fracture of left tibia, initial encounter for closed fracture (principal); Z68.41 Body mass index [BMI] 40.0-44.9, adult; E87.2 Acidosis; D64.9 Anemia, unspecified; D72.829 Elevated white blood cell count, unspecified; E66.01 Morbid (severe) obesity due to excess calories; M85.80 Other specified disorders of bone density and structure, unspecified site; W01.0XXA Fall on same level from slipping, tripping and stumbling without subsequent striking against object, initial encounter; Y93.02 Activity, running; Z90.710 Acquired absence of both cervix and uterus; Z20.822 Contact with and (suspected) exposure to COVID-19; R73.9 Hyperglycemia, unspecified; Z79.899 Other long term (current) drug therapy; R06.89 Other abnormalities of breathing
CPT/HCPCS: 36415; 36430; 36600; 71045; 73560; 73562; 76000; 80053; 82306; 82607; 82805; 82962; 83036; 83540; 83550; 85014; 85018; 85025; 85610; 86850; 86900; 86901; 86920; 87426; 93005; 94640; 94760; 94799; 96365; 96372; 96375; 96376; A4556; A4930; A6253; A6455; C1713; J0330; J0360; J0690; J1650; J1756; J1815; J1885; J2060; J2250; J2270; J2370; J2405; J2704; J2710; J2765; J3010; J3490; J7060; J7120; P9016; U0003; U0005; 97110-GP; 97116-GP; 97530-GP; 97535-GO; 99285-25; G0378